=== PATIENT | female | born 1955 | race Caucasian/White ===

== ENCOUNTER 2017-09-25 11:19 | Inpatient (IN) | payer OTHER ==
[~2017-09-25] VITALS: Ht 152.4 cm; Wt 94.4 kg
[~2017-09-25 11:19] MED LIST: ADVAIR 500/501 DISK IH; AUGMENTIN875 MG PO; DUONEB 2.5-0.5 M3 ML AEROSOL; LO-DOSE ASPIRIN81 M2 PO; SIMVASTATIN40 MG PO; SPIRIVA1 INHALATI IH; SYNTHROID137 MCG PO
[2017-09-25 11:58] LABS: HEMATOCRIT 38.8 % (36.0-46.0); MCH 30.5 PG (29.0-34.0); MCHC 28.4 G/DL (30.0-36.0); MCV 107.5 FL (83-99); NRBC (%) 0.8 /100 WBC (0-0); RBC DIS.WIDTH-CV 13.3 % (11.8-14.6); RED BLOOD COUNT 3.61 M/uL (3.80-5.20); WHITE BLOOD COUNT 10.6 K/uL (4.1-10.2)
[2017-09-25 12:08] LABS: CHLORIDE 95 mEq/L (99-109); POTASSIUM 4.5 mEq/L (3.7-5.4); SODIUM 148 mEq/L (136-147)
[2017-09-25 12:10] LABS: GLUCOSE 110 mg/dL (70-99)
[2017-09-25 12:14] LABS: CREATININE 0.9 mg/dL (0.6-1.3); GFR ESTIMATE (CALCULATED) > 59 mL/min/
[2017-09-25 12:15] LABS: CARBON DIOXIDE (BICARBONATE) > 40.0 mEq/L (20-31); UREA NITROGEN (BUN) 24 mg/dL (9-23)
[2017-09-25 12:35] LABS: PLAT.SUFFICIENCY ADEQUATE; PLATELET COUNT 201 K/uL (156-360)
[2017-09-25 14:52] LABS: BASE EXCESS 18.6 mEq/L (-3 to +3); BICARBONATE 50.3 mEq/L (22-26); CARBOXY HGB 2.4 % (0-5); COMMENTS - BLOOD GASES C+; DEVICE NC; METHEMOGLOBIN 0.9 % (0-1.5); O2 FLOW 6 L/MIN; PCO2 112 mm Hg (35-45); PO2 73 mm Hg (80-100); SITE RR; pH 7.26 (7.35-7.45)
[2017-09-25] MEDS ORDERED: HYDROCHLOROTH12.5 M3 PO (16:38)
[2017-09-25] MEDS ORDERED: SINGULAIR10 MG PO (16:38)
[2017-09-25 17:19] LABS: BASE EXCESS 22.1 mEq/L (-3 to +3); BICARBONATE 52.9 mEq/L (22-26); CARBOXY HGB 2.2 % (0-5); COMMENTS - BLOOD GASES C+; DEVICE VENT; FI02 50 %; MECHANICAL RATE 10 resp/min; METHEMOGLOBIN 0.8 % (0-1.5); MODE SIMV; PCO2 105 mm Hg (35-45); PEEP 6 CM/H20; PO2 88 mm Hg (80-100); PRES. SUPPORT 14 CM/H2O; SITE LR; TIDAL VOLUME 400 ML; pH 7.31 (7.35-7.45)
[2017-09-25 20:54] VITALS: BP 173/69
[2017-09-25 21:00] VITALS: BP 163/70
[2017-09-25 22:00] VITALS: BP 168/67
[2017-09-25 23:00] VITALS: BP 161/71
[2017-09-26] VITALS (23 sets, daily range): BP systolic 143–187; BP diastolic 52–120
[2017-09-26 05:47] LABS: BASE EXCESS 21.3 mEq/L (-3 to +3); BICARBONATE 49.1 mEq/L (22-26); CARBOXY HGB 1.6 % (0-5); METHEMOGLOBIN 1.5 % (0-1.5)
[2017-09-26 05:48] LABS: COMMENTS - BLOOD GASES A+C+; CONTINUOUS POS AIRWAY PRESSURE 8 cm H2O; DEVICE 840; FI02 40 %; MODE SPONT; PCO2 74 mm Hg (35-45); PO2 68 mm Hg (80-100); PRES. SUPPORT 16 CM/H2O; SITE RR; TOTAL RESP RATE 15 resp/min; pH 7.43 (7.35-7.45)
[2017-09-26 06:39] LABS: APPEARANCE TURBID ((CLEAR)); BILIRUBIN NEGATIVE; BLOOD NEGATIVE; COLOR YELLOW ((YELLOW)); GLUCOSE (STRIP) NEGATIVE; KETONES 20; LEUKOCYTES NEGATIVE; NITRITE NEGATIVE; PROTEIN (STRIP) 30
[2017-09-26 07:18] LABS: AMORPHOUS URATES CRYSTALS 4+; BACTERIA NONE SEEN /HPF; EPITHELIAL CELLS NONE SEEN /HPF; MUCUS NONE SEEN /LPF; RED BLOOD CELLS NONE SEEN /HPF (0-5); WHITE BLOOD CELLS NONE SEEN /HPF (0-5)
[2017-09-27] VITALS (12 sets, daily range): BP systolic 92–184; BP diastolic 54–84
[2017-09-27 08:51] LABS: BASE EXCESS 21.1 mEq/L (-3 to +3); BICARBONATE 48.7 mEq/L (22-26); CARBOXY HGB 1.6 % (0-5); METHEMOGLOBIN 1.3 % (0-1.5); PCO2 70 mm Hg (35-45); PO2 60 mm Hg (80-100); pH 7.45 (7.35-7.45)
[2017-09-27 08:53] LABS: COMMENTS - BLOOD GASES A+C+; DEVICE NC; O2 FLOW 3 L/MIN; SITE RR; TOTAL RESP RATE 19 resp/min
[2017-09-27 08:53] LABS: BASOPHIL (%) 0 % (0-1); EOSINOPHIL (%) 0 % (0-5); HEMATOCRIT 38.7 % (36.0-46.0); HEMOGLOBIN 11.3 G/DL (11.9-15.5); IMMATURE GRANULOCYTE (%) 0.7 % (0.0-0.7); LYMPHOCYTE (%) 11.2 % (15-42); LYMPHOCYTE COUNT 1.1 K/uL (1.0-2.8); MCH 30.8 PG (29.0-34.0); MCHC 29.2 G/DL (30.0-36.0); MCV 105.4 FL (83-99); MONOCYTE (%) 10.3 % (3-12); NEUTROPHIL (%) 77.8 % (45-76); NEUTROPHIL COUNT 7.4 K/uL (1.8-6.4); PLATELET COUNT 213 K/uL (156-360); RBC DIS.WIDTH-CV 14.2 % (11.8-14.6); RBC DIS.WIDTH-SD 53.2 % (39-53); RED BLOOD COUNT 3.67 M/uL (3.80-5.20); WHITE BLOOD COUNT 9.5 K/uL (4.1-10.2)
[2017-09-27 09:46] LABS: THYROTROPIN (TSH) 7.2 MIU/L (0.4-5.5)
[2017-09-27 09:47] LABS: ALBUMIN 3.7 G/DL (3.2-4.8); ALKALINE PHOSPHATASE 41 IU/L (3-129); ALT (GPT) 48 IU/L (3-49); AST (GOT) 31 IU/L (2-34); CHLORIDE 98 MEQ/L (99-109); CREATININE 0.7 MG/DL (0.6-1.3); GFR ESTIMATE (CALCULATED) > 59 mL/min/; GLUCOSE 120 mg/dL (70-99); HIGH-SENS C-REACTIVE PROTEIN 1.05 MG/DL (0.02-0.20); PHOSPHORUS 3.5 mg/dL (2.5-4.9); POTASSIUM 4.4 MEQ/L (3.7-5.4); SODIUM 148 MEQ/L (136-147); TOTAL BILIRUBIN 0.4 MG/DL (0.0-1.0); TOTAL PROTEIN 6.7 G/DL (6.4-8.3); UREA NITROGEN (BUN) 31 mg/dL (9-23)
[2017-09-27 09:52] LABS: CARBON DIOXIDE (BICARBONATE) > 40.0 MEQ/L (20-31)
[2017-09-28 00:30] VITALS: BP 167/72
[2017-09-28 01:52] VITALS: BP 140/70
[2017-09-28 04:28] VITALS: BP 156/76
[2017-09-28 07:23] VITALS: BP 168/78
[2017-09-28 11:33] VITALS: BP 142/66
[2017-09-28 12:05] LABS: CHLORIDE 94 MEQ/L (99-109); CREATININE 0.5 MG/DL (0.6-1.3); GFR ESTIMATE (CALCULATED) > 59 mL/min/; GLUCOSE 129 mg/dL (70-99); POTASSIUM 3.9 MEQ/L (3.7-5.4); SODIUM 143 MEQ/L (136-147); UREA NITROGEN (BUN) 22 mg/dL (9-23)
[2017-09-28 12:17] LABS: CARBON DIOXIDE (BICARBONATE) > 40.0 MEQ/L (20-31)
[2017-09-28] MEDS ORDERED: ADVAIR 500/501 DISK IH (12:21)
[2017-09-28] MEDS ORDERED: PREDNISONE10 MG PO (12:22)
[2017-09-28] MEDS ORDERED: PROAIR HFA8.5 GM IH (12:23)
== END 2017-09-28 13:57 | disposition home or self-care (01) | DRG 189 ==
LOC: EME 11:19 → 4WEST 16:27 → EDOF 16:27 → ENRESERV 16:29 → 4WEST 20:44 → ENRESERV 09-27 08:53 → 4WEST 09-27 09:07 → ENRESERV 09-27 09:34 → 5EAST 09-27 10:32 → ENPENDDIS 09-28 → 5EAST 09-28 13:57
PROVIDERS: Family Medicine; Internal Medicine; Internal Medicine Critical Care Medicine; Surgery
PROC: 5A09357 Assistance with Respiratory Ventilation, Less than 24 Consecutive Hours, Continuous Positive Airway Pressure (ICD-10-PCS; principal; 2017-09-25)
DX: J96.21 Acute and chronic respiratory failure with hypoxia (principal); J96.22 Acute and chronic respiratory failure with hypercapnia; J44.1 Chronic obstructive pulmonary disease with (acute) exacerbation; G47.30 Sleep apnea, unspecified; R33.9 Retention of urine, unspecified; I27.20 Pulmonary hypertension, unspecified; E03.9 Hypothyroidism, unspecified; I10 Essential (primary) hypertension; E66.01 Morbid (severe) obesity due to excess calories; Z79.82 Long term (current) use of aspirin; Z99.81 Dependence on supplemental oxygen; Z87.891 Personal history of nicotine dependence; Z91.19 Patient's noncompliance with other medical treatment and regimen; Z68.41 Body mass index [BMI] 40.0-44.9, adult
CPT/HCPCS: 36600; 71045; 80048; 80053; 81003; 82803; 83605; 83735; 83880; 84100; 84145 90; 84439; 84443; 85025; 85027; 86141; 87641; 93005; 93306; 94002; 94003; 94640; 94640 76; 94760; 94799; 99202; 99281; 99285; J0360; J0456; J1100; J1650; J2930; J7030; J7644